=== PATIENT | female | born 1960 | race Caucasian/White ===

== ENCOUNTER 2017-09-27 23:07 | Inpatient (IN) | payer OTHER ==
[2017-09-27 23:24] VITALS: BMI 31.6
--- NOTE | 2017-09-27 23:46 | PDOC ---
History of Present Illness - General Chief Complaint: Shortness of Breath Stated Complaint: DIFFICULTY BREATHING Time Seen by Provider: 09/27/17 23:24 - History of Present Illness Initial Comments: 09/27/17 23:43 Pt is a 56F w/ PMH COPD who presents to ED with shortness of breath. Pt states she's had cough and congestion since and went to see her doctor (Dr. Yamini Clark) who gave her Azithromycin and a Prednisone taper. Pt states these treatments have not helped her. She took OTC phenylephrine and tylenol for her nasal congestion, which did not theron. Pt's SOB is worse with lying flat. Pt states her prior similar episodes usually resolve with breathing treatments and prednisone. NAD, afebrile, hemodynamically stable. Past History - Past Medical History Allergies/Adverse Reactions: Allergies Allergy/AdvReac Type Severity Reaction Status Date / Time No Known Allergies Allergy Verified 11/10/15 00:20 Home Medications: Ambulatory Orders NK [No Known Home Medication] 09/28/17 - Surgical History Cholecystectomy: Yes - Family Disease History Family Disease History: Heart Disease: Mother - Suicide/Smoking/Psychosocial Hx Smoking History: Never smoked Have you smoked in the past 12 months: No Number of Cigarettes Smoked Daily: 30 Information on smoking cessation initiated: No Hx Alcohol Use: No Drug/Substance Use Hx: No Substance Use Type: None Hx Substance Use Treatment: No Review of Systems - Review of Systems Able to Perform ROS?: Yes Is the patient limited Moroccan proficient: No Constitutional: Yes: Symptoms Reported, Chills. No: Diaphoresis, Fever, Malaise , Night Sweats, Weakness HEENTM: Yes: Symptoms Reported, Nose Congestion. No: Ear Discharge, Nose Pain, Nose Bleeding, Hearing Loss Respiratory: Yes: Symptoms reported, Cough, Shortness of Breath, Productive cough Cardiac (ROS): Yes: Symptoms Reported. No: Chest Pain, Edema, Chest Tightness ABD/GI: Yes: Symptoms Reported. No: Abdominal Distended, Abd. Pain w/ defecation, Blood Streaked Bowels, Constipated, Diarrhea, Nausea : Yes: Symptoms Reported. No: Burning, Dysuria, Discharge Musculoskeletal: Yes: Symptoms Reported. No: Joint Swelling, Muscle Pain *Physical Exam - Vital Signs Last Vital Signs Temp Pulse Resp BP Pulse Ox 98.6 F 118 H 24 164/118 92 L 09/27/17 23:21 12/24/17 23:21 09/27/17 23:21 09/27/17 23:21 09/27/17 23:21 - Physical Exam General Appearance: Yes: Nourished, Appropriately Dressed, Mild Distress HEENT: positive: EOMI, CHEL. negative: Pharyngeal Erythema Neck: positive: Supple Respiratory/Chest: positive: Wheezing (diffuse expiratory wheeze with prolonged expiratory phase). negative: Chest Tender, Lungs Clear, Normal Breath Sounds, Respiratory Distress, Accessory Muscle Use Vascular Pulses: Dorsalis-Pedis (R): 2+, Doralis-Pedis (L): 2+ ED Treatment Course - LABORATORY CBC & Chemistry Diagram: 09/28/17 01:46 09/28/17 01:46 Medical Decision Making - Medical Decision Making 09/27/17 23:57 Pt is a 56F w/ PMH COPD who comes to ED with SOB following 1 week of URI symptoms. She complains of cough, nasal congestion, rhinorrhea. She denies fever but admits to chills. She had a course of Zithromax and Prednisone as an outpatient which failed to relieve her symptoms. #COPD exacerbation -CBC, Chem -CXR -Duonebs -Solu-medrol -Prednisone 09/28/17 05:42 CXR revealed RLL consolidation *DC/Admit/Observation/Transfer Diagnosis at time of Disposition: Pneumonia COPD (chronic obstructive pulmonary disease) Qualifiers: COPD type: chronic bronchitis Chronic bronchitis type: unspecified Qualified Code(s): J42 - Unspecified chronic bronchitis - Discharge Dispostion Condition at time of disposition: Guarded Admit: Yes - Referrals Referrals: Yamini Clark [Primary Care Provider] - - Patient Instructions - Post Discharge Activity
--- NOTE | 2017-09-28 00:08 | PDOC ---
Attending Attestation - Resident Resident Name: Denzel Graves - ED Attending Attestation I have performed the following: I have examined & evaluated the patient, The case was reviewed & discussed with the resident, I agree w/resident's findings & plan, Exceptions are as noted - HPI HPI: 09/28/17 00:00 56yo F hx COPD, eczema, smoker p/w cough, nasal congestion x1 week. Was put on prednisone and azithro by PMD (Dr. Clark) on Thursday with no improvement. Also tried phenylephrine and tylenol with no improvement. Presents today due to SOB since yesterday. +chills no fevers. States this feels like her COPD. No CP, abd pain, LE edema. - Physicial Exam PE: 09/28/17 00:20 GENERAL: Awake, alert, and fully oriented, in no acute distress HEAD: No signs of trauma EYES: PERRLA, EOMI, sclera anicteric, conjunctiva clear ENT: Auricles normal inspection, hearing grossly normal, nares patent, oropharynx clear without exudates. Moist mucosa NECK: Normal ROM, supple, no lymphadenopathy, JVD, or masses LUNGS: diffuse exp wheezing HEART: Regular rate and rhythm, normal S1 and S2, no murmurs, rubs or gallops ABDOMEN: Soft, nontender, normoactive bowel sounds. No guarding, no rebound. No masses EXTREMITIES: Normal range of motion, no edema. No clubbing or cyanosis. No cords, erythema, or tenderness NEUROLOGICAL: Normal speech, cranial nerves intact, negative pronator drift, 5/ 5 strength in all 4 extremities, normal sensation to light touch in all 4 extremities, normal cerebellar exam, normal gait, normal reflexes and tone SKIN: Warm, Dry, normal turgor, no rashes or lesions noted. - Medical Decision Making 09/28/17 00:26 56yo F p/w SOB for 1 day and cough/nasal congestion for 1 week. Completed steroid taper. Exam with diffuse wheezing, consistent with likely COPD exacerbation. Concern for failure of outpt treatment although it's possible that pt may improve with nebs (she has not tried any at home). Will reassess. Will also check CXR for infiltrates. 09/28/17 03:25 After first round of nebs, O2 sat 84-86% RA, up to 93% on 2L. ANother neb given. WBC 23, although pt has been in steroids, this is still a bit high and concerning for infx. CXR pending to eval for infiltrate. 2G Mg ordered as well. Pt to be reassessed post rpt nebs.
[2017-09-28] MEDS ORDERED: methylPREDNISolone NA SUCC 40 MG/1 ML VIAL IVPUSH ONE (00:26)
[2017-09-28] MEDS ORDERED: ALBUTEROL SO4 2.5/IPRATROPIUM 0.5 INH SOL 3 ML VIAL.NEB. NEB ONE (00:58)
[2017-09-28] MEDS: ALBUTEROL SO4 2.5/IPRATROPIUM 0.5 INH SOL 3 ML VIAL.NEB. NEB SCH ×3 (01:22→02:07)
[2017-09-28 01:52] LABS: BASO # 0.1 # (0.1-1); LYMPH # 1.8 (8-40); MCH 30.1 pg (25.7-33.7); MCHC 33.3 g/dl (32.0-36.0); MEAN CELL VOLUME 90.3 fl (80-96); MEAN PLT VOLUME 7.5 fl (7.5-11.1); NEUT # 20.5 # (42.8-82.8); PLATELET COUNT 278 K/MM3 (134-434); RDW 13.8 % (11.6-15.6); WHITE BLOOD COUNT 23.3 K/mm3 (4.0-10.0)
[2017-09-28] MEDS ORDERED: methylPREDNISolone NA SUCC 125 MG/2 ML VIAL ONE (01:57)
[2017-09-28 02:28] LABS: ALBUMIN 3.5 g/dl (3.4-5.0); ANION GAP 12 (8-16); CALCIUM 8.8 mg/dL (8.5-10.1); CO2 24 mmol/L (21-32); CREATININE 0.6 mg/dL (0.55-1.02); GLUCOSE,RANDOM 99 mg/dL (74-106); SGOT/AST 12 U/L (15-37); SGPT/ALT 36 U/L (12-78)
[2017-09-28 02:30] LABS: ALK PHOS 153 U/L (45-117); BILIRUBIN,TOTAL 0.8 mg/dL (0.2-1.0)
[2017-09-28] MEDS ORDERED: MAGNESIUM SULF 50% (8.12 MEQ/2 ML-1 GM VIAL) IVPB ONE (03:06)
[2017-09-28] MEDS ORDERED: MAGNESIUM SULF 50% (8.12 MEQ/2 ML-1 GM VIAL) ONE (04:05)
[2017-09-28 04:16] LABS: ACANTHOCYTES 0; ANISOCYTOSIS 0; BURR CELLS 0; CABBOT RINGS 0; HELMET CELLS 0; HOWELL-JOLLY BODIES 0; HYPOCHROMIA 0; MACROCYTOSIS 0; METAMYELOCYTE 0 % (0-2); MICROCYTOSIS 0; MYELOCYTE 0 % (0-2); OVALOCYTE 0; PLATELET ESTIMATE NORMAL; POIKILOCYTOSIS 0; POLYCHROMASIA 0; REACTIVE LYMPHOCYTES 3 % (0-80); SCHISTOCYTES 0; SPHEROCYTE 0; STOMATOCYTE 0; TARGET CELLS 0; TEAR DROP CELLS 0; TOXIC GRANULATION 0
[2017-09-28 04:18] LABS: TOTAL CELLS COUNTED 100
[2017-09-28] MEDS ORDERED: CEFTRIAXONE 2 GM in DEXTROSE 5%-WATER - 100 ML IVPB ONE (04:42)
[2017-09-28] MEDS ORDERED: AZITHROMYCIN IVPB 500 MG in DEXTROSE 5%-WATER - 250 ML IVPB ONE (04:44)
--- NOTE | 2017-09-28 05:02 | PDOC ---
*Physical Exam - Vital Signs Last Vital Signs Temp Pulse Resp BP Pulse Ox 98.6 F 118 H 24 164/118 92 L 09/27/17 23:21 09/27/17 23:21 09/27/17 23:21 09/27/17 23:21 09/27/17 23:21 ED Treatment Course - LABORATORY CBC & Chemistry Diagram: 09/28/17 01:46 09/28/17 01:46 - ADDITIONAL ORDERS Additional order review: Laboratory Results 09/28/17 01:46 Sodium 137 Potassium 3.7 Chloride 101 Carbon Dioxide 24 Anion Gap 12 BUN 7 D Creatinine 0.6 D Creat Clearance w eGFR > 60 Random Glucose 99 Calcium 8.8 Total Bilirubin 0.8 AST 12 L D ALT 36 D Alkaline Phosphatase 153 H Total Protein 7.0 Albumin 3.5 09/28/17 01:46 RBC 5.17 MCV 90.3 MCHC 33.3 RDW 13.8 D MPV 7.5 Neutrophils % Asphalt Distributor Tender Lymphocytes % Asphalt Distributor Tender Monocytes % Asphalt Distributor Tender Eosinophils % Asphalt Distributor Tender Basophils % Asphalt Distributor Tender - Medications Given in the ED: ED Medications Discontinued Medications Generic Name Dose Route Start Last Admin Trade Name Freq PRN Reason Stop Dose Admin Albuterol/Ipratropium 1 amp 09/28/17 00:30 09/28/17 02:07 Duoneb - NEB 09/28/17 01:01 1 amp Q15M [place] Administration Magnesium Sulfate 2 gm 09/28/17 03:06 09/28/17 04:00 Magnesium Sulfate IVPB 09/28/17 03:07 2 gm ONCE ONE Administration Methylprednisolone Sodium Succinate 60 mg 09/28/17 00:26 09/28/17 01:00 Solu-Medrol - IVPUSH 09/28/17 00:27 60 mg ONCE ONE Administration Medical Decision Making - Medical Decision Making 09/28/17 05:01 Care assumed at 3AM. CXR shows RLL consolidation, Concerning for PNA. Pt started on ceftriaxone/azithro. Discussed results with pt, who agrees to stay for admission. *DC/Admit/Observation/Transfer Diagnosis at time of Disposition: Pneumonia COPD (chronic obstructive pulmonary disease) Qualifiers: COPD type: chronic bronchitis Chronic bronchitis type: unspecified Qualified Code(s): J42 - Unspecified chronic bronchitis - Discharge Dispostion Condition at time of disposition: Guarded Admit: Yes - Referrals Referrals: Yamini Clark [Primary Care Provider] - - Patient Instructions - Post Discharge Activity - Attestations Physician Attestion: 09/28/17 05:19 I, Dr. Marciano Persaud MD, attest that this document has been prepared under my direction and personally reviewed by me in its entirety. I further attest, that it accurately reflects all work, treatment, procedures and medical decision -making performed by me.
[2017-09-28] MEDS ORDERED: CEFTRIAXONE 2 GM/100 ML BAG IVPB ONE (05:54)
[2017-09-28] MEDS ORDERED: AZITHROMYCIN IVPB 250 ML IVPB ONE (05:54)
--- NOTE | 2017-09-28 08:27 | HP ---
Admitting History and Physical - Primary Care Physician PCP: Yamini Clark S - Admission Chief Complaint: cough and SOB History of Present Illness: Pt is a 56F w/ PMH COPD who presents to ED with shortness of breath. Pt states she's had cough and congestion since and came to see me in office and I gave her Azithromycin and a Prednisone taper. Pt states these treatments have not helped her. She took OTC phenylephrine and tylenol for her nasal congestion , which did not theron. Pt's SOB is worse with lying flat. Pt states her prior similar episodes usually resolve with breathing treatments and prednisone. NAD, afebrile, hemodynamically stable. pt is noncompliant with meds, visits, consults; she smokes 1 ppd x >30 years History Source: Patient, Medical Record Limitations to Obtaining History: No Limitations - Past Medical History Pulmonary: Yes: COPD - Smoking History Smoking history: Never smoked Have you smoked in the past 12 months: No Aproximately how many cigarettes per day: 30 - Alcohol/Substance Use Hx Alcohol Use: No History of Substance Use: reports: None - Social History Usual Living Arrangement: Yes: With Spouse ADL: Independent History of Recent Travel: No Home Medications - Allergies Allergies/Adverse Reactions: Allergies Allergy/AdvReac Type Severity Reaction Status Date / Time No Known Allergies Allergy Verified 11/10/15 00:20 - Home Medications Home Medications: Ambulatory Orders NK [No Known Home Medication] 09/28/17 Family Disease History - Family Disease History Family History: Unremarkable Review of Systems - Review of Systems Constitutional: denies: Chills, Fever, Lethargy Eyes: denies: Blind Spots, Double Vision HENT: denies: Difficult Swallowing, Ear Pain Neck: denies: Stiffness, Tenderness Cardiovascular: reports: Shortness of Breath. denies: Chest Pain Respiratory: reports: Cough, Exercise Intolerance, SOB, SOB on Exertion, Wheezing. denies: Hemoptysis, Orthopnea, PND Gastrointestinal: denies: Abdominal Pain, Constipation, Diarrhea, Rectal Bleeding, Vomiting, Vomiting Blood Genitourinary: denies: Burning, Dysuria, Flank Pain Musculoskeletal: denies: Back Pain, Extremity Pain Integumentary: denies: Rash Neurological: denies: Change in LOC, Change in Speech, Confusion, Seizure, Syncope Hematology/Lymphatic: denies: Easily Bruised, Excessive Bleeding Psychiatric: denies: Altered Sleep Pattern, Anxiety, Depression, Suicidal Physical Examination Vital Signs: Vital Signs Temperature 98.6 F 09/27/17 23:21 Pulse Rate 80 09/28/17 06:00 Respiratory Rate 18 09/28/17 06:00 Blood Pressure 131/82 09/28/17 06:00 O2 Sat by Pulse Oximetry (%) 93 L 09/28/17 06:22 Constitutional: Yes: No Distress, Calm Eyes: Yes: Conjunctiva Clear HENT: Yes: Atraumatic Neck: Yes: Supple Cardiovascular: Yes: Regular Rate and Rhythm Respiratory: Yes: Rales, Rhonchi, Wheezes Gastrointestinal: Yes: Soft. No: Distention, Tenderness Renal/: No: CVA Tenderness - Left, CVA Tenderness - Right, Hematuria Musculoskeletal: No: Joint Stiffness, Joint Swelling Extremities: No: Cold, Cool, Cyanosis Edema: No Integumentary: No: Rash, Venous Stasis Changes Neurological: Yes: WNL, Alert, Oriented ...Motor Strength: WNL Psychiatric: Yes: WNL, Alert, Oriented. No: Agitated, Suicidal Ideation Labs: CBC, BMP 09/28/17 01:46 09/28/17 01:46 Imaging - Results Chest X-ray: Report Reviewed Other: Report Reviewed Assessment/Plan Pt is a 56F w/ PMH COPD who presents to ED with shortness of breath and cough, acute COPD exac and acute bronchitis smoker not improved with outpt po ATB and steroids admit IV antibiotics, iv steorids, nebs gastric PFX DVT pfx strongly advised to stop smoking; will order NRT if pt agrees chest CT, head/sinus CT pulmonary eval also d/w pt to be compliant with rec. 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
[2017-09-28] MEDS ORDERED: methylPREDNISolone NA SUCC 40 MG/1 ML VIAL IVPUSH SCH (09:00)
[2017-09-28] MEDS: HEPARIN NA (PORCINE) 5,000 UNITS/ML 1ML VIAL SQ SCH ×2 (09:31→21:31)
[2017-09-28] MEDS: ALBUTEROL SO4 0.083% IH SOL 2.5 MG/3 ML VIAL.NEB. NEB PRN ×3 (09:35→20:53)
[2017-09-28] MEDS ORDERED: methylPREDNISolone NA SUCC 125 MG/2 ML VIAL IVPUSH SCH (10:00)
--- NOTE | 2017-09-28 12:57 | PN ---
Progress Note (short form) - Note Progress Note: PULMONARY CONSULTATION DICTATED 09/28/17 IMP ACUTE HYPOXEMIC RESPIRATORY FAILURE COPD EXACERBATION URI NODULAR THICKENING R AYO-DIAPHRAGM LIKELY CHRONIC,?INFLAMMATORY ALTHOUGH CANNOT EXCLUDE MASS TOBACCO ABUSE PLAN IV STEROIDS INHALED BRONCHODILATORS O2 ANTIBIOTICS PFTS OUTPATIENT SMOKING CESSATION COUNSELED PET SCAN OUTPATIENT DR WHITE Problem List - Problems (1) Acute hypoxemic respiratory failure Code(s): J96.01 - ACUTE RESPIRATORY FAILURE WITH HYPOXIA (2) Acute hypoxemic respiratory failure Code(s): J96.01 - ACUTE RESPIRATORY FAILURE WITH HYPOXIA (3) Tobacco abuse counseling Code(s): Z71.6 - TOBACCO ABUSE COUNSELING (4) COPD (chronic obstructive pulmonary disease) Code(s): J44.9 - CHRONIC OBSTRUCTIVE PULMONARY DISEASE, UNSPECIFIED Qualifiers: COPD type: chronic bronchitis Chronic bronchitis type: unspecified Qualified Code(s): J42 - Unspecified chronic bronchitis (5) COPD with exacerbation Code(s): J44.1 - CHRONIC OBSTRUCTIVE PULMONARY DISEASE W (ACUTE) EXACERBATION
[2017-09-28] MEDS: BUDESONIDE/FORMETEROL FUMARATE 160/4.5 mcg INHALER IH SCH ×2 (14:19→21:40)
[2017-09-28] MEDS: TIOTROPIUM BROMIDE 18 MCG/INH (DEVICE W/ 5 CAPSULES) IH SCH (14:19)
--- NOTE | 2017-09-28 14:20 | CONS ---
DATE OF CONSULTATION: 09/28/2017 REFERRING PHYSICIAN: Yamini Clark MD HISTORY: The patient is a 56-year-old white female with past medical history of chronic obstructive pulmonary disease maintained on albuterol, longstanding history of tobacco use, approximately 1 pack per day for greater than 35 years admitted to [facility] with increasing shortness of breath and cough. The patient states that last weekend she started developing cough and chest congestion. She went to Dr. Clark's at which time she was started on Zithromax and prednisone. Despite these measures, she started developing increasing shortness of breath and dyspnea on exertion. She subsequently presented to the emergency room with the above. In the ER, she was treated with inhaled bronchodilators and steroids with some clinical improvement and transferred to the floor for further management. Denies any fevers or chills. Denies any nausea, vomiting, or diaphoresis. Denies any hemoptysis. Denies any chest pains or palpitations. She denies any history of recent travel. There is no history of respiratory failure in the past requiring ventilatory support. She denies any history of occupational exposures. PAST MEDICAL HISTORY: Again includes COPD. REVIEW OF SYSTEMS: Positive for shortness of breath, positive cough, positive chest congestion, positive wheezing. No chest pain, no palpitations, no nausea, no vomiting, no abdominal pain, no lower extremity edema. CURRENT MEDICATIONS: Include Zithromax, Solu-Medrol, heparin, albuterol, ceftriaxone, and Robitussin. PHYSICAL EXAMINATION: General: The patient is a well-developed, well-nourished female awake and alert. Mildly dyspneic but in no acute distress. Vital Signs: She is currently afebrile. Blood pressure 140/75, respiratory rate 22, O2 saturation 93% on 2 L. HEENT: Normocephalic and atraumatic. Neck: Supple. Heart: Regular S1, S2. Chest: Diffuse bilateral wheezes and rhonchi. Abdomen: Soft. Bowel sounds positive. Extremities: No cyanosis or edema. LABORATORIES: WBC is 23.3, hemoglobin 15.5, hematocrit 46.7 with a platelet count of 278,000, BUN 7, creatinine 0.6. Chest CT without contrast with elevation of right hemidiaphragm, nodular pleural thickening in the posterior aspect right lower lobe in the right lung base. IMPRESSION: 1. Acute hypoxemic respiratory failure secondary to acute chronic obstructive pulmonary disease exacerbation. 2. Chronic obstructive pulmonary disease with acute exacerbation. This is likely secondary to upper respiratory infection. 3. Right nodular pleural thickening in the right lower lobe most likely chronic change, although cannot completely exclude possible malignant etiology in view of longstanding history of tobacco use. PLAN: Continue IV steroids, inhaled bronchodilators, supplemental oxygen, antibiotic therapy. Start Spiriva. Also start Symbicort. PFT as an outpatient. Consider PET scan as an outpatient. Smoking cessation counseled. KALEY WHITE M.D. [id number]
[2017-09-28] MEDS: methylPREDNISolone NA SUCC 40 MG/1 ML VIAL IVPUSH SCH ×2 (14:23→21:40)
[2017-09-28] MEDS: guaiFENesin 200 MG/10 ML 10 ML UNIT-DOSE CUPS PO PRN (16:00)
[2017-09-29] MEDS: guaiFENesin 200 MG/10 ML 10 ML UNIT-DOSE CUPS PO PRN (01:14)
[2017-09-29] MEDS: methylPREDNISolone NA SUCC 40 MG/1 ML VIAL IVPUSH SCH ×4 (02:15→21:04)
[2017-09-29 08:08] LABS: ALBUMIN 2.8 g/dl (3.4-5.0); ANION GAP 8 (8-16); CALCIUM 8.2 mg/dL (8.5-10.1); CO2 27 mmol/L (21-32); GLUCOSE,RANDOM 126 mg/dL (74-106); SGPT/ALT 26 U/L (12-78)
[2017-09-29 08:15] LABS: SGOT/AST 4 U/L (15-37)
[2017-09-29 08:20] LABS: ALK PHOS 122 U/L (45-117); BILIRUBIN,TOTAL 0.2 mg/dL (0.2-1.0); CREATININE 0.6 mg/dL (0.55-1.02); THYROID STIMULATING HORMONE 0.26 uIU/ml (0.358-3.74); TOT PROT 6.1 g/dl (6.4-8.2)
[2017-09-29] MEDS: ALBUTEROL SO4 0.083% IH SOL 2.5 MG/3 ML VIAL.NEB. NEB PRN ×3 (09:57→22:35)
[2017-09-29] MEDS ORDERED: PT OWN MED DRAWER 7, Y5N ONE ×2 (10:33→20:39)
[2017-09-29] MEDS: HEPARIN NA (PORCINE) 5,000 UNITS/ML 1ML VIAL SQ SCH ×3 (10:41→21:12)
[2017-09-29] MEDS: BUDESONIDE/FORMETEROL FUMARATE 160/4.5 mcg INHALER IH SCH ×2 (10:43→21:04)
[2017-09-29] MEDS: TIOTROPIUM BROMIDE 18 MCG/INH (DEVICE W/ 5 CAPSULES) IH SCH (10:43)
[2017-09-29] MEDS: CEFTRIAXONE 1 G/50 ML PREMIX 50 ML IVPB SCH (10:55)
--- NOTE | 2017-09-29 12:21 | PN ---
Progress Note (short form) - Note Progress Note: PULMONARY AWAKE/ALERT INTENSE COUGH LAST PM VSS/AFEBRILE ANICTERIC MILD DIFFUSE EXP WHEEZE S1S2 BS+ NO EDEMA LABS/IMAGES/MEDS/CHART/MICRO NOTES IMP ACUTE HYPOXEMIC RESPIRATORY FAILURE COPD EXACERBATION URI NODULAR THICKENING R AYO-DIAPHRAGM LIKELY CHRONIC,?INFLAMMATORY ALTHOUGH CANNOT EXCLUDE MASS TOBACCO ABUSE PLAN IV STEROIDS TO CONTINUE INHALED BRONCHODILATORS O2 ANTIBIOTICS PFTS OUTPATIENT SMOKING CESSATION COUNSELED PET SCAN OUTPATIENT SPO2 PRE/POST AMB R/A Rosalinda AGARWAL MD
--- NOTE | 2017-09-29 12:46 | PN ---
Progress Note, Physician Chief Complaint: in bed NAD VSS afebrile, still coughing; has some "head congestion" and chest congestion too but unable to bring up sputum - Current Medication List Current Medications: Active Medications Albuterol Sulfate (Ventolin 0.083% Nebulizer Soln -) 1 amp NEB Q4H PRN PRN Reason: SHORT OF BREATH/WHEEZING Last Admin: 09/29/17 09:57 Dose: 1 amp Budesonide/Formoterol Fumarate (Symbicort 160/4.5mcg -) 2 puff IH BID [facility] Last Admin: 09/29/17 10:43 Dose: 2 puff Guaifenesin (Robitussin -) 10 ml PO Q4H PRN PRN Reason: COUGH Last Admin: 09/29/17 01:14 Dose: 10 ml Heparin Sodium (Porcine) (Heparin -) 5,000 unit SQ BID [facility] Last Admin: 09/29/17 10:41 Dose: Not Given Azithromycin 500 mg/ Dextrose 250 mls @ 250 mls/hr IVPB DAILY [facility] CEFTRIAXONE 1 G/50 ML PREMIX (Ceftriaxone 1 Gm-D5w Bag) 50 mls @ 100 mls/hr IVPB DAILY [facility] Last Admin: 09/29/17 10:55 Dose: 100 mls/hr Methylprednisolone Sodium Succinate (Solu-Medrol -) 40 mg IVPUSH Q6H-IV [place] Tiotropium [place] (Spiriva -) 1 puff IH DAILY [facility] Last Admin: 09/29/17 10:43 Dose: 1 puff - Objective Vital Signs: Vital Signs Temperature 97.5 F L 09/29/17 08:12 Pulse Rate 80 09/29/17 08:12 Respiratory Rate 18 09/29/17 08:12 Blood Pressure 138/77 09/29/17 08:12 O2 Sat by Pulse Oximetry (%) 98 09/29/17 08:28 Constitutional: Yes: No Distress, Calm Eyes: Yes: Conjunctiva Clear HENT: Yes: Atraumatic Neck: Yes: Supple Cardiovascular: Yes: Regular Rate and Rhythm Respiratory: Yes: Rales, Wheezes Gastrointestinal: Yes: Soft. No: Distention, Tenderness Musculoskeletal: No: Joint Stiffness, Joint Swelling Extremities: No: Cold, Cool Edema: No Integumentary: No: Rash, Venous Stasis Changes Neurological: Yes: WNL, Alert, Oriented ...Motor Strength: WNL Psychiatric: Yes: WNL, Alert, Oriented. No: Agitated, Suicidal Ideation Labs: CBC, BMP 09/28/17 01:46 09/29/17 06:25 - ....Imaging Other: Report Reviewed Assessment/Plan Pt is a 56F w/ PMH COPD who presents to ED with shortness of breath and cough, acute COPD exac and acute bronchitis smoker not improved with outpt po ATB and steroids IV antibiotics, iv steorids, nebs gastric PFX DVT pfx strongly advised to stop smoking; will order NRT if pt agrees chest CT, head/sinus CT noted pulmonary eval also d/w pt and staff
[2017-09-29] MEDS: AZITHROMYCIN IVPB 500 MG in DEXTROSE 5%-WATER - 250 ML IVPB SCH (13:23)
[2017-09-30] MEDS: methylPREDNISolone NA SUCC 40 MG/1 ML VIAL IVPUSH SCH ×4 (02:08→20:41)
[2017-09-30] MEDS: ALBUTEROL SO4 0.083% IH SOL 2.5 MG/3 ML VIAL.NEB. NEB PRN ×4 (06:35→20:53)
[2017-09-30] MEDS ORDERED: PT OWN MED DRAWER 7, Y5N ONE ×2 (09:23→20:38)
[2017-09-30] MEDS: AZITHROMYCIN IVPB 500 MG in DEXTROSE 5%-WATER - 250 ML IVPB SCH (09:53)
[2017-09-30] MEDS: CEFTRIAXONE 1 G/50 ML PREMIX 50 ML IVPB SCH (09:54)
[2017-09-30] MEDS: guaiFENesin 200 MG/10 ML 10 ML UNIT-DOSE CUPS PO PRN (09:58)
[2017-09-30] MEDS: TIOTROPIUM BROMIDE 18 MCG/INH (DEVICE W/ 5 CAPSULES) IH SCH (10:00)
[2017-09-30] MEDS: BUDESONIDE/FORMETEROL FUMARATE 160/4.5 mcg INHALER IH SCH ×2 (10:00→21:26)
[2017-09-30] MEDS: HEPARIN NA (PORCINE) 5,000 UNITS/ML 1ML VIAL SQ SCH ×2 (10:02→21:23)
[2017-09-30] MEDS: PANTOPRAZOLE 40 MG TABLET (FP) PO SCH (10:54)
--- NOTE | 2017-09-30 10:59 | PN ---
Progress Note, Physician Chief Complaint: slightly better today consults and tests noted and d/w pt - Current Medication List Current Medications: Active Medications Albuterol Sulfate (Ventolin 0.083% Nebulizer Soln -) 1 amp NEB Q4H PRN PRN Reason: SHORT OF BREATH/WHEEZING Last Admin: 09/30/17 06:35 Dose: 1 amp Budesonide/Formoterol Fumarate (Symbicort 160/4.5mcg -) 2 puff IH BID [facility] Last Admin: 09/30/17 10:00 Dose: 2 puff Guaifenesin (Robitussin -) 10 ml PO Q4H PRN PRN Reason: COUGH Last Admin: 09/30/17 09:58 Dose: 10 ml Heparin Sodium (Porcine) (Heparin -) 5,000 unit SQ BID [facility] Last Admin: 09/30/17 10:02 Dose: Not Given Azithromycin 500 mg/ Dextrose 250 mls @ 250 mls/hr IVPB DAILY [facility] Last Admin: 09/30/17 09:53 Dose: 250 mls/hr CEFTRIAXONE 1 G/50 ML PREMIX (Ceftriaxone 1 Gm-D5w Bag) 50 mls @ 100 mls/hr IVPB DAILY [facility] Last Admin: 09/30/17 09:54 Dose: 100 mls/hr Methylprednisolone Sodium Succinate (Solu-Medrol -) 40 mg IVPUSH Q6H-IV [place] Last Admin: 09/30/17 09:57 Dose: 40 mg Pantoprazole Sodium (Protonix -) 40 mg PO DAILY [facility] Last Admin: 09/30/17 10:54 Dose: 40 mg Tiotropium [place] (Spiriva -) 1 puff IH DAILY [facility] Last Admin: 09/30/17 10:00 Dose: 1 puff - Objective Vital Signs: Vital Signs Temperature 97.6 F 09/30/17 06:00 Pulse Rate 68 09/30/17 06:00 Respiratory Rate 18 09/30/17 06:00 Blood Pressure 121/68 09/30/17 06:00 O2 Sat by Pulse Oximetry (%) 97 09/29/17 22:00 Constitutional: Yes: No Distress, Calm Eyes: Yes: Conjunctiva Clear HENT: Yes: Atraumatic Neck: Yes: Supple Cardiovascular: Yes: Regular Rate and Rhythm Respiratory: Yes: Rales, Wheezes Gastrointestinal: Yes: Soft. No: Distention, Tenderness Genitourinary: No: CVA Tenderness - Left, CVA Tenderness - Right Musculoskeletal: No: Joint Stiffness, Joint Swelling Extremities: No: Cold, Cool, Cyanosis Edema: No Integumentary: No: Pressure Ulcer, Rash, Venous Stasis Changes Neurological: Yes: WNL, Alert, Oriented ...Motor Strength: WNL Psychiatric: Yes: WNL, Alert, Oriented. No: Agitated, Suicidal Ideation Labs: CBC, BMP 09/28/17 01:46 09/29/17 06:25 - ....Imaging Cat Scan: Report Reviewed Other: Report Reviewed Assessment/Plan Pt is a 56F w/ PMH COPD who presents to ED with shortness of breath and cough, acute COPD exac and acute bronchitis smoker not improved with outpt po ATB and steroids IV antibiotics, iv steorids, nebs gastric PFX DVT pfx strongly advised to stop smoking; will order NRT if pt agrees chest CT, head/sinus CT noted pulmonary eval also d/w pt and staff
--- NOTE | 2017-09-30 13:02 | PN ---
Progress Note (short form) - Note Progress Note: PULMONARY AWAKE/ALERT MILD SUBJECTIVE IMPROVEMENT COUGH PERSISTS BUT LESS VSS/AFEBRILE ANICTERIC MILD DIFFUSE EXP WHEEZE S1S2 BS+ NO EDEMA LABS/IMAGES/MEDS/CHART/MICRO NOTES IMP ACUTE HYPOXEMIC RESPIRATORY FAILURE COPD EXACERBATION URI NODULAR THICKENING R AYO-DIAPHRAGM LIKELY CHRONIC,?INFLAMMATORY ALTHOUGH CANNOT EXCLUDE MASS TOBACCO ABUSE PLAN IV STEROIDS TO CONTINUE INHALED BRONCHODILATORS O2 ANTIBIOTICS PFTS OUTPATIENT SMOKING CESSATION COUNSELED PET SCAN OUTPATIENT SPO2 PRE/POST AMB R/A DAILY [facility] Rosalinda AGARWAL MD
[2017-10-01] MEDS: guaiFENesin 200 MG/10 ML 10 ML UNIT-DOSE CUPS PO PRN ×2 (01:24→21:05)
[2017-10-01] MEDS: methylPREDNISolone NA SUCC 40 MG/1 ML VIAL IVPUSH SCH ×4 (02:03→21:05)
--- NOTE | 2017-10-01 07:33 | PN ---
Progress Note, Physician Chief Complaint: feels better today; less cough does not qualify for home O2 started on NRT - Current Medication List Current Medications: Active Medications Albuterol Sulfate (Ventolin 0.083% Nebulizer Soln -) 1 amp NEB Q4H PRN PRN Reason: SHORT OF BREATH/WHEEZING Last Admin: 09/30/17 20:53 Dose: 1 amp Budesonide/Formoterol Fumarate (Symbicort 160/4.5mcg -) 2 puff IH BID [facility] Last Admin: 09/30/17 21:26 Dose: 2 puff Guaifenesin (Robitussin -) 10 ml PO Q4H PRN PRN Reason: COUGH Last Admin: 10/01/17 01:24 Dose: 10 ml Heparin Sodium (Porcine) (Heparin -) 5,000 unit SQ BID [facility] Last Admin: 09/30/17 21:23 Dose: Not Given Azithromycin 500 mg/ Dextrose 250 mls @ 250 mls/hr IVPB DAILY [facility] Last Admin: 09/30/17 09:53 Dose: 250 mls/hr CEFTRIAXONE 1 G/50 ML PREMIX (Ceftriaxone 1 Gm-D5w Bag) 50 mls @ 100 mls/hr IVPB DAILY [facility] Last Admin: 09/30/17 09:54 Dose: 100 mls/hr Methylprednisolone Sodium Succinate (Solu-Medrol -) 40 mg IVPUSH Q6H-IV [facility] Last Admin: 10/01/17 02:03 Dose: 40 mg Nicotine (Nicoderm Patch -) 14 mg TD DAILY [facility] Pantoprazole Sodium (Protonix -) 40 mg PO DAILY [facility] Last Admin: 09/30/17 10:54 Dose: 40 mg Tiotropium [place] (Spiriva -) 1 puff IH DAILY [facility] Last Admin: 09/30/17 10:00 Dose: 1 puff - Objective Vital Signs: Vital Signs Temperature 97.9 F 10/01/17 05:44 Pulse Rate 61 10/01/17 05:44 Respiratory Rate 20 10/01/17 05:44 Blood Pressure 139/77 10/01/17 05:44 O2 Sat by Pulse Oximetry (%) 93 L 09/30/17 14:30 Constitutional: Yes: No Distress, Calm Eyes: Yes: Conjunctiva Clear HENT: Yes: Atraumatic Neck: Yes: Supple Cardiovascular: Yes: Regular Rate and Rhythm Respiratory: Yes: Wheezes (less) Gastrointestinal: Yes: Soft. No: Distention, Tenderness Genitourinary: No: CVA Tenderness - Left, CVA Tenderness - Right Musculoskeletal: No: Joint Stiffness, Joint Swelling Edema: No Integumentary: No: Rash, Venous Stasis Changes Neurological: Yes: WNL, Alert, Oriented ...Motor Strength: WNL Psychiatric: Yes: WNL, Alert, Oriented. No: Agitated, Suicidal Ideation Labs: CBC, BMP 09/28/17 01:46 09/29/17 06:25 - ....Imaging Other: Report Reviewed Assessment/Plan Pt is a 56F w/ PMH COPD who presents to ED with shortness of breath and cough, acute COPD exac and acute bronchitis smoker IV antibiotics, iv steorids, nebs gastric PFX DVT pfx strongly advised to stop smoking; started NRT pulmonary f/u needs outpt PET scan and f/u chest CT in 3-4 months d/w pt she is aware to f/u outpt also will need labs CBC CMP in 1-2 weeks after DC home for high WBC count - if still high when URI resolves and OFF steroids to see heme dr Dwyer r/o Myeloproliferative ds d/w pt she is aware also d/w pt and staff
[2017-10-01 08:38] LABS: BASO % 0.2 % (0-2.0); LYMPH # 1.2; MCH 29.4 pg (25.7-33.7); MEAN CELL VOLUME 92.1 fl (80-96); MEAN PLT VOLUME 7.7 fl (7.5-11.1); MONO # 0.5 #; NEUT # 14.5 #; NEUT % 89.6 % (42.8-82.8); PLATELET COUNT 268 K/MM3 (134-434); RDW 14.1 % (11.6-15.6); WHITE BLOOD COUNT 16.3 K/mm3 (4.0-10.0)
[2017-10-01 09:11] LABS: ALBUMIN 2.7 g/dl (3.4-5.0); ALK PHOS 99 U/L (45-117); ANION GAP 5 (8-16); BILIRUBIN,TOTAL 0.4 mg/dL (0.2-1.0); CALCIUM 8.3 mg/dL (8.5-10.1); CO2 29 mmol/L (21-32); CREATININE 0.6 mg/dL (0.55-1.02); GLUCOSE,RANDOM 108 mg/dL (74-106); SGOT/AST 6 U/L (15-37); SGPT/ALT 32 U/L (12-78); TOT PROT 5.9 g/dl (6.4-8.2)
[2017-10-01] MEDS: CEFTRIAXONE 1 G/50 ML PREMIX 50 ML IVPB SCH (09:52)
[2017-10-01] MEDS: AZITHROMYCIN IVPB 500 MG in DEXTROSE 5%-WATER - 250 ML IVPB SCH (09:55)
[2017-10-01] MEDS: NICOTINE 14 MG/24 HOURS TOPICAL PATCH TD SCH (09:57)
[2017-10-01] MEDS: BUDESONIDE/FORMETEROL FUMARATE 160/4.5 mcg INHALER IH SCH ×2 (09:57→21:05)
[2017-10-01] MEDS: TIOTROPIUM BROMIDE 18 MCG/INH (DEVICE W/ 5 CAPSULES) IH SCH (09:57)
[2017-10-01] MEDS: PANTOPRAZOLE 40 MG TABLET (FP) PO SCH (09:57)
[2017-10-01] MEDS: HEPARIN NA (PORCINE) 5,000 UNITS/ML 1ML VIAL SQ SCH ×2 (09:57→21:05)
[2017-10-01] MEDS ORDERED: PANTOPRAZOLE 40 MG TABLET (FP) PO SCH (10:00)
[2017-10-01] MEDS: ALBUTEROL SO4 0.083% IH SOL 2.5 MG/3 ML VIAL.NEB. NEB PRN ×2 (11:13→23:37)
--- NOTE | 2017-10-01 16:04 | PN ---
Progress Note (short form) - Note Progress Note: PULMONARY AWAKE/ALERT SUBJECTIVE IMPROVEMENT SCANT COUGH VSS/AFEBRILE ANICTERIC MILD DIFFUSE EXP WHEEZE S1S2 BS+ NO EDEMA LABS/IMAGES/MEDS/CHART/MICRO NOTES DOES NOT QUALIFY FOR HOME O2 IMP ACUTE HYPOXEMIC RESPIRATORY FAILURE COPD EXACERBATION URI NODULAR THICKENING R AYO-DIAPHRAGM LIKELY CHRONIC,?INFLAMMATORY ALTHOUGH CANNOT EXCLUDE MASS TOBACCO ABUSE PLAN IV STEROIDS TO CONTINUE TODAY WOULD CHANGE TO ORAL IN AM AND CONTINUE THE TAPER AT HOME INHALED BRONCHODILATORS O2 PRN ANTIBIOTICS PFTS OUTPATIENT SMOKING CESSATION COUNSELED PET SCAN OUTPATIENT DAILY PEAK FLOW Rosalinda AGARWAL MD
[2017-10-02] MEDS: methylPREDNISolone NA SUCC 40 MG/1 ML VIAL IVPUSH SCH ×3 (02:41→17:42)
[2017-10-02 07:32] LABS: BASO % 0.2 % (0-2.0); LYMPH # 1.2; MCH 29.6 pg (25.7-33.7); MCHC 31.9 g/dl (32.0-36.0); MEAN CELL VOLUME 92.7 fl (80-96); MEAN PLT VOLUME 7.8 fl (7.5-11.1); MONO # 0.4 #; NEUT # 13.1 #; NEUT % 89.2 % (42.8-82.8); PLATELET COUNT 274 K/MM3 (134-434); RDW 14.1 % (11.6-15.6); WHITE BLOOD COUNT 14.7 K/mm3 (4.0-10.0)
[2017-10-02 07:49] LABS: ANION GAP 8 (8-16); BILIRUBIN,TOTAL 0.3 mg/dL (0.2-1.0); CALCIUM 8.6 mg/dL (8.5-10.1); CO2 31 mmol/L (21-32); CREATININE 0.8 mg/dL (0.55-1.02); GLUCOSE,RANDOM 107 mg/dL (74-106); SGOT/AST 8 U/L (15-37); SGPT/ALT 36 U/L (12-78)
[2017-10-02 07:50] LABS: ALK PHOS 99 U/L (45-117)
--- NOTE | 2017-10-02 08:04 | PN ---
Progress Note, Physician Chief Complaint: in bed feels better but still with some coughing and wheezing; will switch to po ATB zpack iv steroids will switch to po and DC planning does not need home O2 - Current Medication List Current Medications: Active Medications Albuterol Sulfate (Ventolin 0.083% Nebulizer Soln -) 1 amp NEB Q4H PRN PRN Reason: SHORT OF BREATH/WHEEZING Last Admin: 10/01/17 23:37 Dose: 1 amp Budesonide/Formoterol Fumarate (Symbicort 160/4.5mcg -) 2 puff IH BID [facility] Last Admin: 10/01/17 21:05 Dose: 2 puff Guaifenesin (Robitussin -) 10 ml PO Q4H PRN PRN Reason: COUGH Last Admin: 10/01/17 21:05 Dose: 10 ml Heparin Sodium (Porcine) (Heparin -) 5,000 unit SQ BID [facility] Last Admin: 10/01/17 21:05 Dose: 5,000 unit Azithromycin 500 mg/ Dextrose 250 mls @ 250 mls/hr IVPB DAILY [facility] Last Admin: 10/01/17 09:55 Dose: 250 mls/hr CEFTRIAXONE 1 G/50 ML PREMIX (Ceftriaxone 1 Gm-D5w Bag) 50 mls @ 100 mls/hr IVPB DAILY [facility] Last Admin: 10/01/17 09:52 Dose: 100 mls/hr Methylprednisolone Sodium Succinate (Solu-Medrol -) 40 mg IVPUSH Q8H-IV [facility] Last Admin: 10/02/17 02:41 Dose: 40 mg Nicotine (Nicoderm Patch -) 14 mg TD DAILY [facility] Last Admin: 10/01/17 09:57 Dose: 14 mg Pantoprazole Sodium (Protonix -) 40 mg PO DAILY [facility] Last Admin: 10/01/17 09:57 Dose: 40 mg Tiotropium [place] (Spiriva -) 1 puff IH DAILY [facility] Last Admin: 10/01/17 09:57 Dose: 1 puff - Objective Vital Signs: Vital Signs Temperature 97.7 F 10/02/17 05:23 Pulse Rate 60 10/02/17 05:23 Respiratory Rate 18 10/02/17 05:23 Blood Pressure 132/77 10/02/17 05:23 O2 Sat by Pulse Oximetry (%) 95 10/01/17 21:00 Constitutional: Yes: No Distress, Calm Eyes: Yes: Conjunctiva Clear HENT: Yes: Atraumatic Neck: Yes: Supple Cardiovascular: Yes: Regular Rate and Rhythm Respiratory: Yes: Rales, Wheezes Gastrointestinal: Yes: Soft. No: Distention, Tenderness Genitourinary: No: CVA Tenderness - Left, CVA Tenderness - Right Musculoskeletal: No: Joint Stiffness, Joint Swelling Extremities: No: Cold, Cool, Cyanosis Edema: No Integumentary: No: Rash, Venous Stasis Changes Neurological: Yes: WNL, Alert, Oriented ...Motor Strength: WNL Psychiatric: Yes: WNL, Alert, Oriented. No: Agitated, Suicidal Ideation Labs: CBC, BMP 10/02/17 06:50 10/02/17 06:50 - ....Imaging Other: Report Reviewed Assessment/Plan Pt is a 56F w/ PMH COPD who presents to ED with shortness of breath and cough, acute COPD exac and acute bronchitis smoker IV to po antibiotics, iv to po steorids, nebs gastric PFX DVT pfx strongly advised to stop smoking; started NRT pulmonary f/u needs outpt PET scan and f/u chest CT in 3-4 months d/w pt she is aware to f/u outpt also will need labs CBC CMP in 1-2 weeks after DC home for high WBC count - if still high when URI resolves and OFF steroids to see miracle Dwyer r/o Myeloproliferative ds d/w pt she is aware also d/w pt and staff
[2017-10-02] MEDS: CEFTRIAXONE 1 G/50 ML PREMIX 50 ML IVPB SCH (09:26)
[2017-10-02] MEDS: AZITHROMYCIN IVPB 500 MG in DEXTROSE 5%-WATER - 250 ML IVPB SCH (09:26)
[2017-10-02] MEDS: BUDESONIDE/FORMETEROL FUMARATE 160/4.5 mcg INHALER IH SCH ×2 (09:26→22:02)
[2017-10-02] MEDS: NICOTINE 14 MG/24 HOURS TOPICAL PATCH TD SCH (09:27)
[2017-10-02] MEDS: TIOTROPIUM BROMIDE 18 MCG/INH (DEVICE W/ 5 CAPSULES) IH SCH (09:27)
[2017-10-02] MEDS: HEPARIN NA (PORCINE) 5,000 UNITS/ML 1ML VIAL SQ SCH ×2 (09:28→22:03)
[2017-10-02] MEDS: PANTOPRAZOLE 40 MG TABLET (FP) PO SCH (09:28)
--- NOTE | 2017-10-02 11:54 | PN ---
Progress Note (short form) - Note Progress Note: PULMONARY AWAKE/ALERT SUBJECTIVE IMPROVEMENT SCANT COUGH/PEAK FLOW 230L/M VSS/AFEBRILE ANICTERIC MILD DIFFUSE EXP WHEEZE S1S2 BS+ NO EDEMA LABS/IMAGES/MEDS/CHART/MICRO NOTES DOES NOT QUALIFY FOR HOME O2 IMP ACUTE HYPOXEMIC RESPIRATORY FAILURE COPD EXACERBATION URI NODULAR THICKENING R AYO-DIAPHRAGM LIKELY CHRONIC,?INFLAMMATORY ALTHOUGH CANNOT EXCLUDE MASS TOBACCO ABUSE PLAN IV STEROIDS TO CONTINUE TODAY WOULD CHANGE TO ORAL IN AM AND CONTINUE THE TAPER AT HOME INHALED BRONCHODILATORS O2 PRN ANTIBIOTICS PFTS OUTPATIENT SMOKING CESSATION COUNSELED PET SCAN OUTPATIENT DAILY PEAK FLOW Rosalinda AGARWAL MD
[2017-10-02] MEDS: ALBUTEROL SO4 0.083% IH SOL 2.5 MG/3 ML VIAL.NEB. NEB PRN (11:56)
[2017-10-02] MEDS: AZITHROMYCIN 250 MG TABLET PO SCH (18:54)
[2017-10-02] MEDS ORDERED: PT OWN MED DRAWER 7, Y5N ONE (22:00)
[2017-10-03] MEDS: ALBUTEROL SO4 0.083% IH SOL 2.5 MG/3 ML VIAL.NEB. NEB PRN ×2 (00:20→07:43)
[2017-10-03] MEDS: methylPREDNISolone NA SUCC 40 MG/1 ML VIAL IVPUSH SCH ×2 (02:30→09:18)
[2017-10-03 06:44] VITALS: BP 135/69; PULSE 65; TEMP 97.7
[2017-10-03] MEDS ORDERED: PT OWN MED DRAWER 7, Y5N ONE (09:12)
[2017-10-03] MEDS: PANTOPRAZOLE 40 MG TABLET (FP) PO SCH (09:18)
[2017-10-03] MEDS: HEPARIN NA (PORCINE) 5,000 UNITS/ML 1ML VIAL SQ SCH (09:18)
[2017-10-03] MEDS: CEFTRIAXONE 1 G/50 ML PREMIX 50 ML IVPB SCH (09:19)
[2017-10-03] MEDS: NICOTINE 14 MG/24 HOURS TOPICAL PATCH TD SCH (09:19)
[2017-10-03] MEDS: BUDESONIDE/FORMETEROL FUMARATE 160/4.5 mcg INHALER IH SCH (09:19)
[2017-10-03] MEDS: AZITHROMYCIN 250 MG TABLET PO SCH (09:32)
--- NOTE | 2017-10-03 10:27 | PN ---
Progress Note (short form) - Note Progress Note: PULMONARY AWAKE/ALERT SUBJECTIVE IMPROVEMENT SCANT COUGH/PEAK FLOW 280L/M VSS/AFEBRILE ANICTERIC MINIMAL EXP WHEEZE SCATTERED S1S2 BS+ NO EDEMA LABS/IMAGES/MEDS/CHART/MICRO NOTES DOES NOT QUALIFY FOR HOME O2 IMP ACUTE HYPOXEMIC RESPIRATORY FAILURE COPD EXACERBATION URI NODULAR THICKENING R AYO-DIAPHRAGM LIKELY CHRONIC,?INFLAMMATORY ALTHOUGH CANNOT EXCLUDE MASS TOBACCO ABUSE PLAN IV STEROIDS CHANGED TO ORAL INHALED BRONCHODILATORS DOES NOT REQUIRE HOME O2 ANTIBIOTICS CAN BE COMPLETED AN OUTPATIENT IF NEEDED PFTS OUTPATIENT SMOKING CESSATION COUNSELED BUT PATIENT WILL LIKELY RETURN TO SMOKING PET SCAN OUTPATIENT DAILY PEAK FLOW Rosalinda AGARWAL MD
[2017-10-03] MEDS ORDERED: predniSONE 20 MG TABLET (UD) PO SCH (10:30)
[2017-10-03] MEDS: TIOTROPIUM BROMIDE 18 MCG/INH (DEVICE W/ 5 CAPSULES) IH SCH (10:44)
--- NOTE | 2017-10-03 14:15 | DS ---
Physical Examination Vital Signs: Vital Signs Temperature 97.7 F 10/03/17 06:44 Pulse Rate 65 10/03/17 06:44 Respiratory Rate 20 10/03/17 09:00 Blood Pressure 135/69 10/03/17 06:44 O2 Sat by Pulse Oximetry (%) 96 10/03/17 09:00 Findings/Remarks: feeling well no CP/SOB much less cough, afebrile; wants to go home; her will pick her up from [facility] all scripts done and d/w pt f/u chest CT in 3 months and outpt PET scan and labs d/w pt f/u consults and health maintenance dw pt does not qualify for home O2 strongly advised to stop smoking and to be c/w meds and f/u t time 40 min d/w pt and staff Constitutional: Yes: No Distress, Calm Eyes: Yes: Conjunctiva Clear HENT: Yes: Atraumatic Neck: Yes: Supple Cardiovascular: Yes: Regular Rate and Rhythm Respiratory: Yes: CTA Bilaterally Gastrointestinal: Yes: Soft. No: Distention, Tenderness Renal/: No: CVA Tenderness - Left, CVA Tenderness - Right, Hematuria Musculoskeletal: No: Joint Stiffness, Joint Swelling Extremities: No: Cold, Cool, Cyanosis Edema: No Integumentary: No: Pressure Ulcer, Rash, Venous Stasis Changes Neurological: Yes: WNL, Alert, Oriented ...Motor Strength: WNL Psychiatric: Yes: WNL, Alert, Oriented. No: Agitated, Suicidal Ideation Labs: CBC, BMP 10/02/17 06:50 10/02/17 06:50 Discharge Summary Reason For Visit: PNEUMONIA Current Active Problems Acute hypoxemic respiratory failure (Acute) Acute hypoxemic respiratory failure (Acute) COPD (chronic obstructive pulmonary disease) (Acute) COPD with exacerbation (Acute) Pneumonia (Acute) Tobacco abuse (Acute) Tobacco abuse counseling (Acute) Procedures: Principal: admitted with acute bronchitis and acute COPD exac Other Procedures: IV steroids, Nebs, O2, Inhalers, IV antibiotics. seen by pulmonary; Hospital Course: improved with above; DC home and f/u as advised Condition: Guarded - Instructions Diet, Activity, Other Instructions: outpt PET scan stop smoking repeat chest CT in 3 months c/w meds as advised; health maintenance pap [place] [facility] mammogram GI colonoscopy d/ w pt also to see cardiology for ASHD screening f/u labs CBC CMP outpt in 1-2 weeks; if high WBC to see miracle Dwyer Referrals: Yamini Clark [Primary Care Provider] - Rolly Hopkins MD [Staff Physician] - Bishop Castellanos MD [Staff Physician] - Disposition: HOME - Home Medications Comprehensive Discharge Medication List: Ambulatory Orders Azithromycin [Zithromax -] 250 mg PO UTDICT #[id number] tab 10/02/17 Budesonide/Formeterol Fumarate [SYMBICORT 160/4.5mcg -] 2 puff IH BID #1 inhaler 10/02/17 Guaifenesin [Robitussin -] 10 ml PO Q4H PRN cup 10/02/17 Nicotine Patch [Nicoderm Patch -] 14 mg TD DAILY #14 patch 10/02/17 Pantoprazole Sodium [Protonix -] 40 mg PO DAILY #30 tablet.ec 10/02/17 Prednisone 10 mg PO DAILY #20 tablet 10/02/17 Tiotropium [place] [Spiriva] 1 puff IH DAILY #1 inh 10/02/17
== END 2017-10-03 15:13 | disposition home or self-care (01) | DRG 140 ==
LOC: JER 23:07 → JERBED 09-28 05:20 → J6S 09-28 08:00
PROVIDERS: ADMIT Specialist; ATTEND Specialist
DX: J44.1 Chronic obstructive pulmonary disease with (acute) exacerbation (principal); J96.01 Acute respiratory failure with hypoxia; J20.9 Acute bronchitis, unspecified; J06.9 Acute upper respiratory infection, unspecified
CPT/HCPCS: 36415; 70450-TC; 71010-TC; 71250-TC; 80053; 84443; 85025; 94150; 94640; 94761; 99283-25; J1644

== ENCOUNTER 2024-02-08 22:21 | Emergency (ER) | payer OTHER ==
[2024-02-08 22:29] VITALS: TEMP 98.1; BMI 32.5
[2024-02-08] MEDS ORDERED: methylPREDNISolone NA SUCC 125 MG/2 ML VIAL ONE (23:42)
[2024-02-08] MEDS ORDERED: ALBUTEROL SO4 2.5/IPRATROPIUM 0.5 INH SOL 3 ML VIAL.NEB. NEB ONE ×2 (23:42→23:46)
[2024-02-08] MEDS ORDERED: ACETAMINOPHEN 500 MG TABLET (FP) ONE (23:46)
[2024-02-08 23:51] VITALS: BP 172/98; PULSE 94; RESP 16
[2024-02-09] MEDS: methylPREDNISolone NA SUCC 125 MG/2 ML VIAL IVPUSH ONE (00:07)
[2024-02-09] MEDS: ALBUTEROL SO4 2.5/IPRATROPIUM 0.5 INH SOL 3 ML VIAL.NEB. NEB SCH (00:07)
[2024-02-09] MEDS: ACETAMINOPHEN 500 MG TABLET (FP) PO ONE (00:07)
[2024-02-09] MEDS ORDERED: ACETAMINOPHEN INJECTION 100 ML IVPB ONE (00:09)
[2024-02-09 00:12] LABS: HEMATOCRIT 45.6 % (32.4-45.2); HEMOGLOBIN 15.4 GM/dL (10.7-15.3); MCH 31.3 pg (25.7-33.7); MCHC 33.7 g/dl (32.0-36.0); MEAN PLT VOLUME 7.3 fl (7.5-11.1); PLATELET COUNT 230 10^3/uL (134-434); RDW 13.9 % (11.6-15.6); WHITE BLOOD COUNT 20.7 K/mm3 (4.0-10.0)
[2024-02-09] MEDS: ACETAMINOPHEN 1000 MG/100 ML BAG IVPB ONE (00:15)
[2024-02-09 00:34] LABS: POTASSIUM 3.5 mmol/L (3.5-5.1)
[2024-02-09 00:36] LABS: CALCIUM 8.8 mg/dL (8.5-10.1)
[2024-02-09 00:37] LABS: ALBUMIN 3.2 g/dl (3.4-5.0); MAGNESIUM 2.6 mg/dL (1.8-2.4)
[2024-02-09 00:40] LABS: CREATININE 0.7 mg/dL (0.55-1.3)
[2024-02-09 00:41] LABS: TOT PROT 6.8 g/dl (6.4-8.2)
[2024-02-09 00:42] LABS: BILIRUBIN,TOTAL 2.1 mg/dL (0.2-1)
[2024-02-09] MEDS ORDERED: AMOX TR/POT CLAV 875MG/125MG TABLETS (FP) ONE (01:47)
[2024-02-09] MEDS: AMOX TR/POT CLAV 875MG/125MG TABLETS (FP) PO ONE (01:58)
[2024-02-09] MEDS: levoFLOXacin 750 MG TABLET PO ONE (01:58)
[2024-02-09 03:14] LABS: ANISOCYTOSIS 1+; MACROCYTOSIS 0
[2024-02-09] MEDS ORDERED: levoFLOXacin 750 MG TABLET PO SCH (10:00)
== END 2024-02-09 02:13 | disposition home or self-care (01) ==
LOC: JER 22:21
PROC: 3E033NZ Introduction of Analgesics, Hypnotics, Sedatives into Peripheral Vein, Percutaneous Approach (ICD-10-PCS; principal; 2024-02-09)
PROC: 3E033GC Introduction of Other Therapeutic Substance into Peripheral Vein, Percutaneous Approach (ICD-10-PCS; 2024-02-09)
PROC: 3E0F7GC Introduction of Other Therapeutic Substance into Respiratory Tract, Via Natural or Artificial Opening (ICD-10-PCS; 2024-02-09)
DX: R05.9 Cough, unspecified (principal); R09.81 Nasal congestion; R50.9 Fever, unspecified; J18.9 Pneumonia, unspecified organism; J44.1 Chronic obstructive pulmonary disease with (acute) exacerbation; J32.9 Chronic sinusitis, unspecified; Z20.822 Contact with and (suspected) exposure to COVID-19
CPT/HCPCS: 0241U-QW; 36415; 71046-TC-FY; 80053; 83735; 85025; 93005; 93010; 99285-25; J0131

== ENCOUNTER 2024-03-14 22:20 | Emergency (ER) | payer OTHER ==
[2024-03-14] MEDS ORDERED: ACETAMINOPHEN 500 MG TABLET (FP) PO ONE (22:24)
[2024-03-14 22:27] VITALS: BP 163/110; PULSE 103; RESP 18; TEMP 97.9; BMI 31.6
[2024-03-14] MEDS ORDERED: ACETAMINOPHEN 500 MG TABLET (FP) ONE (22:51)
[2024-03-14] MEDS: ACETAMINOPHEN 650 MG/20.3 ML ORAL SOLUTION (CUPS) PO ONE (23:32)
== END 2024-03-15 00:21 | disposition home or self-care (01) ==
LOC: FER 22:20
DX: M25.512 Pain in left shoulder (principal); W01.0XXA Fall on same level from slipping, tripping and stumbling without subsequent striking against object, initial encounter
CPT/HCPCS: 73030-TC-LT-FY; 99283-25

== ENCOUNTER 2024-12-23 07:50 | Inpatient (IN) | payer OTHER ==
[2024-12-23] MEDS ORDERED: ALBUTEROL SO4 2.5/IPRATROPIUM 0.5 INH SOL 3 ML VIAL.NEB. NEB ONE (08:03)
[2024-12-23] MEDS: ALBUTEROL SO4 2.5/IPRATROPIUM 0.5 INH SOL 3 ML VIAL.NEB. NEB SCH (08:15)
[2024-12-23] MEDS ORDERED: LIDOCAINE 5% TOPICAL PATCH ONE (08:16)
[2024-12-23] MEDS ORDERED: methylPREDNISolone NA SUCC 125 MG/2 ML VIAL ONE (08:16)
[2024-12-23] MEDS ORDERED: ACETAMINOPHEN INJECTION 100 ML ONE (08:16)
[2024-12-23] MEDS: methylPREDNISolone NA SUCC 125 MG/2 ML VIAL IVPUSH ONE (08:42)
[2024-12-23] MEDS: ACETAMINOPHEN 1000 MG/100 ML BAG IVPB ONE (08:42)
[2024-12-23] MEDS: LIDOCAINE 5% TOPICAL PATCH TP ONE (08:42)
[2024-12-23 08:55] LABS: BASOPHILS # 0.05 x10^3/uL (0.01-0.08); EOSINOPHIL % 0.1 % (0.7-5.8); EOSINOPHILS # 0.02 x10^3/uL (0.04-0.36); HEMATOCRIT 45.8 % (34.1-44.9); HEMOGLOBIN 14.6 g/dL (11.2-15.7); MCHC 31.9 g/dl (32.2-35.5); MEAN CELL VOLUME 86.9 fl (79.4-94.8); MEAN PLT VOLUME 8.9 fl (9.4-12.3); MONOCYTE # 1.16 x10^3/uL (0.24-0.86); MONOCYTE % 7.3 % (4.7-12.5); PLATELET COUNT # 310 x10^3/uL (182-369); RDW 13.1 % (12.4-16.4); VENOUS O2 SATURATION 50.1 % (70-80); VENOUS PH 7.292 (7.310-7.410)
[2024-12-23] MEDS ORDERED: morphine SULFATE 4 MG/ML VIAL ONE (09:13)
[2024-12-23 09:14] LABS: INR 1.17 (0.83-1.09); PROTHROMBIN TIME (PATIENT) 12.7 SEC (9.7-13.0)
[2024-12-23 09:17] LABS: ACTIVATED PTT 33.9 SECONDS (25.2-36.5)
[2024-12-23] MEDS: morphine CARPU-JECT 4 MG/1 ML DISP.SYRIN IVPUSH ONE (09:20)
[2024-12-23 09:21] LABS: POTASSIUM 4.3 mmol/L (3.5-5.1)
[2024-12-23 09:23] LABS: CALCIUM 9.7 mg/dL (8.5-10.1)
[2024-12-23 09:24] LABS: ALBUMIN 3.4 g/dl (3.4-5.0); BLOOD UREA NITROGEN 16.5 mg/dL (7-18)
[2024-12-23 09:27] LABS: CREATININE 0.8 mg/dL (0.55-1.3)
[2024-12-23 09:29] LABS: BILIRUBIN,TOTAL 0.6 mg/dL (0.2-1); TOT PROT 7.3 g/dl (6.4-8.2)
[2024-12-23] MEDS: AZITHROMYCIN IVPB 500 MG in DEXTROSE 5%-WATER - 250 ML IVPB ONE (10:59)
[2024-12-23] MEDS: CEFTRIAXONE 1 GM in DEXTROSE 5%-WATER - 100 ML IVPB ONE (10:59)
[2024-12-23 11:15] LABS: VENOUS O2 SATURATION 97.3 % (70-80); VENOUS PCO2 44.3 mmHg (38-52); VENOUS PH 7.333 (7.310-7.410)
[2024-12-23] MEDS ORDERED: FAMOTIDINE 20 MG TABLET ONE (13:27)
[2024-12-23] MEDS ORDERED: CycloBENZAprine HCL 5 MG TABLET ONE (13:28)
[2024-12-23] MEDS ORDERED: LEVALBUTEROL HCL 0.63 MG/3 ML VIAL.NEB. IH ONE (13:28)
[2024-12-23] MEDS: LEVALBUTEROL HCL 0.63 MG/3 ML VIAL.NEB. IH SCH (13:34)
[2024-12-23] MEDS: CycloBENZAprine HCL 10 MG TABLET (FP) PO SCH (13:34)
[2024-12-23] MEDS: FAMOTIDINE 20 MG TABLET PO SCH (13:34)
[2024-12-23] MEDS ORDERED: methylPREDNISolone NA SUCC 40 MG/1 ML VIAL IVPUSH SCH (18:00)
[2024-12-23 18:07] VITALS: BMI 34.2
[2024-12-23] MEDS: KETOROLAC TROMETHAMINE 15 MG/ML VIAL IVPUSH PRN (18:45)
[2024-12-23] MEDS: ACETAMINOPHEN 1000 MG/100 ML BAG IVPB PRN (21:49)
[2024-12-23] MEDS: LIDOCAINE PATCH REMOVAL MC SCH (21:56)
[2024-12-24] MEDS: LIDOCAINE PATCH REMOVAL MC ONE (00:46)
[2024-12-24 07:29] LABS: HEMATOCRIT 42.9 % (34.1-44.9); HEMOGLOBIN 13.8 g/dL (11.2-15.7); MCHC 32.2 g/dl (32.2-35.5); MEAN CELL VOLUME 86.3 fl (79.4-94.8); MEAN PLT VOLUME 9.6 fl (9.4-12.3); PLATELET COUNT # 335 x10^3/uL (182-369); RDW 13.2 % (12.4-16.4)
[2024-12-24 07:39] LABS: POTASSIUM 4.2 mmol/L (3.5-5.1)
[2024-12-24 07:44] LABS: CALCIUM 10.2 mg/dL (8.5-10.1)
[2024-12-24 07:45] LABS: ALBUMIN 3.3 g/dl (3.4-5.0); MAGNESIUM 2.7 mg/dL (1.8-2.4)
[2024-12-24 07:47] LABS: CREATININE 0.8 mg/dL (0.55-1.3); PHOSPHOROUS 2.4 mg/dL (2.5-4.9)
[2024-12-24 07:48] LABS: BILIRUBIN,TOTAL 0.5 mg/dL (0.2-1); TOT PROT 7.5 g/dl (6.4-8.2)
[2024-12-24] MEDS: ENOXAPARIN NA (PORCINE) 40 MG/0.4 ML DISP.SYRIN SQ SCH (09:27)
[2024-12-24] MEDS: methylPREDNISolone NA SUCC 40 MG/1 ML VIAL IVPUSH SCH (09:27)
[2024-12-24] MEDS: LIDOCAINE 4% PATCH TP SCH (09:27)
[2024-12-24] MEDS: FUROSEMIDE 40 MG TABLET (FP) PO SCH (18:03)
[2024-12-25 07:28] LABS: POTASSIUM 3.9 mmol/L (3.5-5.1)
[2024-12-25 07:37] LABS: BLOOD UREA NITROGEN 33.6 mg/dL (7-18)
[2024-12-25 07:40] LABS: CALCIUM 10.6 mg/dL (8.5-10.1)
[2024-12-25 07:43] LABS: CREATININE 0.9 mg/dL (0.55-1.3)
[2024-12-25 07:46] LABS: HEMATOCRIT 45.4 % (34.1-44.9); HEMOGLOBIN 14.8 g/dL (11.2-15.7); MCHC 32.6 g/dl (32.2-35.5); MEAN CELL VOLUME 85.5 fl (79.4-94.8); MEAN PLT VOLUME 9.5 fl (9.4-12.3); PLATELET COUNT # 407 x10^3/uL (182-369); RDW 13.4 % (12.4-16.4)
[2024-12-25] MEDS ORDERED: NICOTINE POLACRILEX 2 MG LOZENGE BC PRN (10:05)
[2024-12-25] MEDS ORDERED: LORazepam 1 MG TABLET PO ONE (10:07)
[2024-12-25] MEDS ORDERED: predniSONE 20 MG TABLET (UD) PO SCH (10:15)
[2024-12-25] MEDS: LORazepam 1 MG TABLET PO ONE (14:40)
[2024-12-25 21:35] LABS: EPI CELLS 2 /uL (0-25.1); HYALINE CASTS 0 /uL (0-3.1); URINE APPEARANCE CLEAR; URINE BACTERIA 4 /uL (0-1359); URINE BILIRUBIN NEGATIVE (NEGATIVE); URINE COLOR YELLOW; URINE GLUCOSE (UA) NEGATIVE (NEGATIVE); URINE KETONE NEGATIVE (NEGATIVE); URINE LEUK ESTERASE TRACE (NEGATIVE); URINE NITRITE NEGATIVE (NEGATIVE); URINE PROTEIN NEGATIVE (NEGATIVE); URINE RBC 19 /uL (0-23.9); URINE UROBILINOGEN 0.2 mg/dL (0.2-1.0); URINE WBC 30 /uL (0-25.8)
[2024-12-25 23:53] LABS: URINE CRYSTALS NONE SEEN /hpf
[2024-12-26] MEDS: IBUPROFEN 400 MG TABLET (FP) PO ONE (06:16)
[2024-12-26] MEDS: IBUPROFEN 600 MG TABLET (FP) PO ONE (06:33)
[2024-12-26] MEDS: LABETALOL HCL 200 MG TABLET (FP) PO SCH ×2 (10:01→21:19)
[2024-12-26] MEDS: predniSONE 20 MG TABLET (UD) PO SCH (10:01)
[2024-12-26] MEDS ORDERED: NICOTINE POLACRILEX 2 MG LOZENGE BC PRN (13:13)
[2024-12-26] MEDS: CycloBENZAprine HCL 10 MG TABLET (FP) PO SCH (13:58)
[2024-12-26] MEDS: LEVALBUTEROL HCL 0.63 MG/3 ML VIAL.NEB. IH SCH (14:40)
[2024-12-26] MEDS: LIDOCAINE PATCH REMOVAL MC SCH (21:02)
[2024-12-26] MEDS: DICLOFENAC SODIUM 25 MG TABLET.DR PO ONE (21:18)
[2024-12-26] MEDS ORDERED: LIDOCAINE PATCH REMOVAL MC SCH (22:00)
[2024-12-27 08:40] LABS: HEMATOCRIT 37.7 % (34.1-44.9); HEMOGLOBIN 12.3 g/dL (11.2-15.7); MCHC 32.6 g/dl (32.2-35.5); MEAN CELL VOLUME 85.7 fl (79.4-94.8); PLATELET COUNT # 345 x10^3/uL (182-369); RDW 13.7 % (12.4-16.4)
[2024-12-27 08:56] LABS: POTASSIUM 3.8 mmol/L (3.5-5.1)
[2024-12-27 08:58] LABS: CALCIUM 9.1 mg/dL (8.5-10.1)
[2024-12-27 09:00] LABS: ALBUMIN 2.8 g/dl (3.4-5.0); BLOOD UREA NITROGEN 39.9 mg/dL (7-18); MAGNESIUM 2.7 mg/dL (1.8-2.4)
[2024-12-27 09:02] LABS: CREATININE 1.1 mg/dL (0.55-1.3); PHOSPHOROUS 3.4 mg/dL (2.5-4.9)
[2024-12-27 09:03] LABS: BILIRUBIN,TOTAL 0.5 mg/dL (0.2-1); TOT PROT 6.2 g/dl (6.4-8.2)
[2024-12-27] MEDS: FAMOTIDINE 20 MG TABLET PO SCH (10:27)
[2024-12-27] MEDS: FUROSEMIDE 40 MG TABLET (FP) PO SCH (10:27)
[2024-12-27] MEDS: predniSONE 20 MG TABLET (UD) PO SCH (10:27)
[2024-12-27] MEDS: LIDOCAINE 4% PATCH TP SCH (10:29)
[2024-12-27] MEDS: ENOXAPARIN NA (PORCINE) 40 MG/0.4 ML DISP.SYRIN SQ SCH (10:30)
[2024-12-27] MEDS: KETOROLAC TROMETHAMINE 10 MG TABLET PO PRN (11:32)
[2024-12-27] MEDS ORDERED: LORazepam 2 MG TABLET PO ONE (13:57)
[2024-12-27] MEDS ORDERED: LORazepam 0.5 MG TABLET PO PRN (14:30)
[2024-12-27] MEDS: LORazepam 0.5 MG TABLET PO ONE (14:39)
[2024-12-27] MEDS: ACETAMINOPHEN 325 MG TABLET (FP) PO ONE (14:40)
[2024-12-27 15:07] LABS: PARATHYROID HORM INTACT 27 pg/mL (15-65)
[2024-12-28 09:12] LABS: HEMATOCRIT 40.6 % (34.1-44.9); HEMOGLOBIN 12.9 g/dL (11.2-15.7); MCHC 31.8 g/dl (32.2-35.5); MEAN CELL VOLUME 86.8 fl (79.4-94.8); RDW 13.8 % (12.4-16.4)
[2024-12-28 09:32] LABS: POTASSIUM 3.9 mmol/L (3.5-5.1)
[2024-12-28 09:34] LABS: BLOOD UREA NITROGEN 38.3 mg/dL (7-18); CALCIUM 9.3 mg/dL (8.5-10.1)
[2024-12-28 09:35] LABS: ALBUMIN 2.9 g/dl (3.4-5.0)
[2024-12-28 09:38] LABS: CREATININE 0.9 mg/dL (0.55-1.3)
[2024-12-28 09:40] LABS: BILIRUBIN,TOTAL 0.4 mg/dL (0.2-1); TOT PROT 6.6 g/dl (6.4-8.2)
[2024-12-28] MEDS: ACETAMINOPHEN 325 MG TABLET (FP) PO PRN (09:49)
[2024-12-28 18:22] LABS: BASOPHILS # 0.08 x10^3/uL (0.01-0.08); EOSINOPHILS # 0.01 x10^3/uL (0.04-0.36); MEAN PLT VOLUME 9.5 fl (9.4-12.3); MONOCYTE % 5.8 % (4.7-12.5); PLATELET COUNT # 365 x10^3/uL (182-369)
[2024-12-28] MEDS ORDERED: IPRATROPIUM BR 0.02% 0.5 MG/2.5 ML VIAL.NEB. NEB ONE (18:51)
[2024-12-28] MEDS: IPRATROPIUM BR 0.02% 0.5 MG/2.5 ML VIAL.NEB. NEB SCH (21:00)
[2024-12-28] MEDS: CycloBENZAprine HCL 10 MG TABLET (FP) PO SCH (22:18)
[2024-12-29 09:34] LABS: HEMOGLOBIN 12.8 g/dL (11.2-15.7); MEAN PLT VOLUME 9.3 fl (9.4-12.3); PLATELET COUNT # 312 x10^3/uL (182-369); RDW 14.1 % (12.4-16.4)
[2024-12-29 10:14] LABS: POTASSIUM 3.9 mmol/L (3.5-5.1)
[2024-12-29 10:21] LABS: BLOOD UREA NITROGEN 39.1 mg/dL (7-18)
[2024-12-29 10:22] LABS: ALBUMIN 2.7 g/dl (3.4-5.0)
[2024-12-29 10:25] LABS: CREATININE 0.9 mg/dL (0.55-1.3)
[2024-12-29 10:26] LABS: BILIRUBIN,TOTAL 0.7 mg/dL (0.2-1)
[2024-12-29] MEDS ORDERED: LEVALBUTEROL HCL 0.63 MG/3 ML VIAL.NEB. IH PRN (10:29)
[2024-12-29] MEDS: predniSONE 20 MG TABLET (UD) PO SCH (10:52)
[2024-12-30 12:56] VITALS: BP 121/74; PULSE 86; RESP 19; TEMP 97.9
== END 2024-12-30 11:45 | disposition home or self-care (01) | DRG 139 ==
LOC: JER 07:50 → JERBED 12:01 → J4W 15:05 → J8W 12-26 13:06
PROVIDERS: ADMIT Internal Medicine; ATTEND Nurse Practitioner Family
DX: J18.9 Pneumonia, unspecified organism (principal); J44.1 Chronic obstructive pulmonary disease with (acute) exacerbation; J44.0 Chronic obstructive pulmonary disease with (acute) lower respiratory infection; K21.9 Gastro-esophageal reflux disease without esophagitis; I16.0 Hypertensive urgency; R91.8 Other nonspecific abnormal finding of lung field; E87.1 Hypo-osmolality and hyponatremia; E83.52 Hypercalcemia; M54.50 Low back pain, unspecified; J96.01 Acute respiratory failure with hypoxia; E66.01 Morbid (severe) obesity due to excess calories; Z68.34 Body mass index [BMI] 34.0-34.9, adult
CPT/HCPCS: 36415; 71045-TC-FY; 71275-TC; 74174-TC; 80048; 80053; 81003; 82164; 82306; 82397; 82803; 82962; 83735; 83970; 84100; 84436; 84443; 84484; 85025; 85027; 85610; 85730; 86038; 86140; 86480; 87040; 87086; 87899; 93005; 93010; 93306-TC; 94010; 94640; 94761; 97116-GP; 97161-GP; 99285-25; J0131